=== PATIENT | female | born 1985 | race Caucasian/White ===

== ENCOUNTER 2016-11-29 15:05 | Emergency (ER) | payer OTHER ==
[2016-11-29] MEDS ORDERED: Sodium Chloride 0.9% 1,000 ML IV ONE (15:15)
[2016-11-29] MEDS ORDERED: Sodium Chloride 0.9% 2.5 ML Syringe FLUSH PRN (15:16)
[2016-11-29] MEDS ORDERED: Sodium Chloride 0.9% 10 ML Syringe FLUSH PRN (15:16)
--- NOTE | 2016-11-29 15:23 | EDM.PDOC ---
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 She's done to more subsequently that are also positive last night she started bleeding heavily with cramping and clots this last hour she is filled up maxipads. Her cramping is now subsided. She denies any dizziness or vomiting but states she is nauseous. Review of systems: As per history of present illness and below otherwise all systems reviewed and negative. Past medical history: As per history of present illness and as reviewed below otherwise noncontributory. Surgical history: As per history of present illness and as reviewed below otherwise noncontributory. Social history: No reported history of drug or alcohol abuse. Family history: As per history of present illness and as reviewed below otherwise noncontributory. Physical exam: General: Well developed, well nourished in NAD HEENT: Atraumatic, normocephalic, pupils reactive, negative for conjunctival pallor or scleral icterus, mucous membranes moist, throat clear, neck supple, nontender, trachea midline. Lungs: Clear to auscultation, breath sounds equal bilaterally, chest nontender. Heart: S1S2, regular, negative for clicks, rubs, or JVD. Abdomen: Soft, nondistended, nontender. Negative for masses or hepatosplenomegaly. Negative for costovertebral tenderness. Pelvis: Stable nontender. Genitourinary: Pelvic exam shows small clots in the os which was removed without residual bleeding. No cervical motion tenderness os is closed to fingertip the Rectal: Deferred. Extremities: Atraumatic, negative for cords or calf pain. Neurovascular unremarkable. Neuro: Awake, alert, oriented. Cranial nerves II through XII unremarkable. Cerebellum unremarkable. Motor and sensory unremarkable throughout. Exam nonfocal. Diagnostics: [] Labs are normal ultrasound shows an empty uterus normal adnexa, Rh+ Therapeutics: [] Impression: [] Spontaneous versus early Plan: [] Followup will be for repeat hCG Quant in 48-72 hours Definitive disposition and diagnosis as appropriate pending reevaluation and review of above. - Related Data Allergies Allergy/AdvReac Type Severity Reaction Status Date / Time seasonal Allergy Sneezing Uncoded 11/29/16 15:18 Home Meds: Home Meds Docosahexanoic Acid [ Dha] 200 mg PO DAILY 11/29/16 [History] ED ROS GENERAL - Review of Systems Review Of Systems: See Below (See history of present illness) ED EXAM - Physical Exam Exam: See Below (See history of present illness) Course - Vital Signs Last Recorded V/S: Last Vital Signs Temp 36.9 C 11/29/16 15:12 Pulse 79 11/29/16 15:12 Resp 19 11/29/16 15:12 BP 142/102 H 11/29/16 15:12 Pulse Ox 99 11/29/16 15:12 - Orders/Labs/Meds Orders: Active Orders 24 hr Category Date Time Status OB Transvaginal [US] Stat Exams 11/29/16 15:16 Ordered Sodium Chloride 0.9% [Saline Flush] Med 11/29/16 15:16 Active 10 ml FLUSH ASDIRECTED PRN Sodium Chloride 0.9% [Saline Flush] Med 11/29/16 15:16 Active 2.5 ml FLUSH ASDIRECTED PRN Peripheral IV Insertion Adult [OM.PC] Stat Oth 11/29/16 15:15 Ordered Medication Orders Sodium Chloride (Saline Flush) 10 ml FLUSH ASDIRECTED PRN PRN Reason: Keep Vein Open Sodium Chloride (Saline Flush) 2.5 ml FLUSH ASDIRECTED PRN PRN Reason: Keep Vein Open Labs: Laboratory Tests 11/29/16 11/29/16 11/29/16 Range/Units 15:15 15:20 15:20 WBC 8.48 (4.0-11.0) K/uL RBC 4.52 (4.30-5.90) M/uL Hgb 14.5 (12.0-16.0) g/dL Hct 42.3 (36.0-46.0) % MCV 93.6 (80.0-98.0) fL MCH 32.1 H (27.0-32.0) pg MCHC 34.3 (31.0-37.0) g/dL RDW Std Deviation 42.3 (28.0-62.0) fl RDW Coeff of Rina 12 (11.0-15.0) % Plt Count 343 (150-400) K/uL MPV 8.80 (7.40-12.00) fL Neut % (Auto) 54.0 (48.0-80.0) % Lymph % (Auto) 36.8 (16.0-40.0) % [place] % (Auto) 7.5 (0.0-15.0) % Eos % (Auto) 1.5 (0.0-7.0) % Baso % (Auto) 0.2 (0.0-1.5) % Neut # (Auto) 4.6 (1.4-5.7) K/uL Lymph # (Auto) 3.1 H (0.6-2.4) K/uL [place] # (Auto) 0.6 (0.0-0.8) K/uL Eos # (Auto) 0.1 (0.0-0.7) K/uL Baso # (Auto) 0.0 (0.0-0.1) K/uL Nucleated RBC % 0.0 /100WBC Nucleated RBCs # 0 K/uL HCG, Quant 167.3 mIU/mL Urine Color PINK Urine Appearance CLEAR Urine pH 6.5 (5.0-8.0) Ur Specific [place] <= 1.005 (1.001-1.035) Urine Protein 30 (NEGATIVE) mg/dL Urine Glucose (UA) NEGATIVE (NEGATIVE) mg/dL Urine Ketones NEGATIVE (NEGATIVE) mg/dL Urine Occult Blood LARGE H (NEGATIVE) Urine Nitrite NEGATIVE (NEGATIVE) Urine Bilirubin NEGATIVE (NEGATIVE) Urine Urobilinogen 0.2 (<2.0) EU/dL Ur Leukocyte Esterase NEGATIVE (NEGATIVE) Urine RBC 30-40 (0-2/HPF) Urine WBC 0-2 (0-5/HPF) Ur Epithelial Cells FEW (NONE-FEW) Urine Bacteria RARE (NEGATIVE) Blood Type 11/29/16 Range/Units 15:20 WBC (4.0-11.0) K/uL RBC (4.30-5.90) M/uL Hgb (12.0-16.0) g/dL Hct (36.0-46.0) % MCV (80.0-98.0) fL MCH (27.0-32.0) pg MCHC (31.0-37.0) g/dL RDW Std Deviation (28.0-62.0) fl RDW Coeff of Rina (11.0-15.0) % Plt Count (150-400) K/uL MPV (7.40-12.00) fL Neut % (Auto) (48.0-80.0) % Lymph % (Auto) (16.0-40.0) % [place] % (Auto) (0.0-15.0) % Eos % (Auto) (0.0-7.0) % Baso % (Auto) (0.0-1.5) % Neut # (Auto) (1.4-5.7) K/uL Lymph # (Auto) (0.6-2.4) K/uL [place] # (Auto) (0.0-0.8) K/uL Eos # (Auto) (0.0-0.7) K/uL Baso # (Auto) (0.0-0.1) K/uL Nucleated RBC % /100WBC Nucleated RBCs # K/uL HCG, Quant mIU/mL Urine Color Urine Appearance Urine pH (5.0-8.0) Ur Specific [place] (1.001-1.035) Urine Protein (NEGATIVE) mg/dL Urine Glucose (UA) (NEGATIVE) mg/dL Urine Ketones (NEGATIVE) mg/dL Urine Occult Blood (NEGATIVE) Urine Nitrite (NEGATIVE) Urine Bilirubin (NEGATIVE) Urine Urobilinogen (<2.0) EU/dL Ur Leukocyte Esterase (NEGATIVE) Urine RBC (0-2/HPF) Urine WBC (0-5/HPF) Ur Epithelial Cells (NONE-FEW) Urine Bacteria (NEGATIVE) Blood Type O POSITIVE Meds: Medications Generic Name Dose Route Start Last Admin Trade Name Freq PRN Reason Stop Dose Admin Sodium Chloride 10 ml 11/29/16 15:16 Saline Flush FLUSH ASDIRECTED PRN Keep Vein Open Sodium Chloride 2.5 ml 11/29/16 15:16 Saline Flush FLUSH ASDIRECTED PRN Keep Vein Open Discontinued Medications Generic Name Dose Route Start Last Admin Trade Name Freq PRN Reason Stop Dose Admin Sodium Chloride 1,000 mls @ 999 mls/hr 11/29/16 15:15 Normal Saline IV 11/29/16 16:15 .Bolus ONE Departure - Departure Time of Disposition: 16:37 Disposition: Home, Self-Care 01 Condition: good Clinical Impression: Spontaneous - Discharge Information Forms: ED Department Discharge Additional Instructions: The following information is given to patients seen in the emergency department who are being discharged to home. This information is to outline your options for follow-up care. We provide all patients seen in our emergency department with a follow-up referral. The need for follow-up, as well as the timing and circumstances, are variable depending upon the specifics of your emergency department visit. If you don't have a primary care physician on staff, we will provide you with a referral. We always advise you to contact your personal physician following an emergency department visit to inform them of the circumstance of the visit and for follow-up with them and/or the need for any referrals to a consulting specialist. The emergency department will also refer you to a specialist when appropriate. This referral assures that you have the opportunity for follow-up care with a specialist. All of these measure are taken in an effort to provide you with optimal care, which includes your follow-up. Under all circumstances we always encourage you to contact your private physician who remains a resource for coordinating your care. When calling for follow-up care, please make the office aware that this follow-up is from your recent emergency room visit. If for any reason you are refused follow-up, please contact the [facility] Emergency Department at and asked to speak to the emergency department charge nurse. Followup women's health clinic for repeat hCG Quant in 48-72 hours. [facility] Primary [facility] - Women's [facility] [address] [place] [id number] - My Orders Last 24 Hours: My Active Orders 11/29/16 15:15 Peripheral IV Insertion Adult [OM.PC] Stat 11/29/16 15:16 OB Transvaginal [US] Stat Sodium Chloride 0.9% [Saline Flush] 10 ml FLUSH ASDIRECTED PRN Sodium Chloride 0.9% [Saline Flush] 2.5 ml FLUSH ASDIRECTED PRN - Assessment/Plan Last 24 Hours: My Active Orders 11/29/16 15:15 Peripheral IV Insertion Adult [OM.PC] Stat 11/29/16 15:16 OB Transvaginal [US] Stat Sodium Chloride 0.9% [Saline Flush] 10 ml FLUSH ASDIRECTED PRN Sodium Chloride 0.9% [Saline Flush] 2.5 ml FLUSH ASDIRECTED PRN
[2016-11-29 16:58] VITALS: BP 136/72
--- NOTE | 2016-11-30 17:54 | US ---
EXAM DATE: 11/29/16 PATIENT'S AGE: 31 Patient: FIDELIA BARAHONA Facility: [place], [place] Site . Site : 1985 Study: US OB Pelvis [id number]/14/2017 4:42:05 PM Ordering Physician: Sung Shepherd Final Report: CLINICAL HISTORY: Heavy bleeding. Patient reports positive test approximately 1 week ago. TECHNIQUE: Real-time, dunaway-scale images were acquired of the pelvis using a transvaginal approach. Comparison: None available. FINDINGS: On transvaginal imaging, endometrial stripe measures 4.9 millimeters. The uterus measures 8.3 x 5.1 x 4.1 centimeters. There is a 1.9 x 1.2 x 1.0 centimeter heterogeneous mass with color signal indicating blood flow within the uterus, which appears to be located near the fundus and on the provided images appears to be located within the myometrium, anteriorly. The ovaries demonstrate normal follicular development. The left ovary measures 3.8 x 1.6 x 1.8 centimeter in size and the right ovary measures 2.3 x 1.9 x 3.9. The ovaries demonstrate normal arterial and venous blood flow. There is trace amount of fluid within the cul-de-sac. IMPRESSION: 1. No live intrauterine seen. The differential includes spontaneous , early IUP, and ectopic . I would recommend stranding in the beta HCG levels and obtain followup ultrasound exams as clinically warranted. 2. Mass within the uterus, which appears to be within the myometrium along the anterior wall, fundus. The appearance would be most consistent with a uterine fibroid. Given the positive test, and lack of additional findings if there is significant clinical concern, a followup ultrasound could be obtained as noted above. Dictated by Naldo Russo MD @ Nov 29 2016 5:22PM (Electronic Signature) Report Signed by Proxy. KALI
== END 2016-11-29 16:56 | disposition home or self-care (01) ==
LOC: MW.ED 15:05
DX: O03.9 Complete or unspecified spontaneous abortion without complication (principal); Z91.09 Other allergy status, other than to drugs and biological substances; Z79.899 Other long term (current) drug therapy
CPT/HCPCS: 36415; 76817; 81001; 84702; 85025; 86900; 86901; 96360; 99284; J7040; 99283

== ENCOUNTER 2017-10-08 14:52 | Inpatient (IN) | payer OTHER ==
[2017-10-08] MEDS ORDERED: Sodium Chloride 0.9% 2.5 ML Syringe FLUSH PRN (15:36)
[2017-10-08] MEDS ORDERED: Methylergonovine 0.2 MG/1 ML Amp IM PRN (15:36)
[2017-10-08] MEDS ORDERED: Carboprost Tromethamine 250 MCG/1 ML Amp IM PRN (15:36)
[2017-10-08] MEDS ORDERED: Lidocaine 1% 50 ML MDV INJECT PRN (15:36)
[2017-10-08] MEDS ORDERED: Tranexamic Acid 1,000 MG in Sodium Chloride 0.9% 100 ML IV PRN (15:36)
[2017-10-08] MEDS ORDERED: Nalbuphine 10 MG/1 ML Vial IVPUSH PRN (15:36)
[2017-10-08] MEDS ORDERED: Sodium Chloride 0.9% 10 ML Syringe FLUSH PRN (15:36)
[2017-10-08] MEDS ORDERED: Butorphanol 1 MG/ML SDV IVPUSH PRN (15:36)
[2017-10-08] MEDS ORDERED: Misoprostol 200 MCG Tab PO PRN (15:36)
[2017-10-08] MEDS ORDERED: Water For Irrigation,Sterile 1,000 ML Container IRR PRN (15:36)
[2017-10-08] MEDS ORDERED: Oxytocin/0.9 % Sodium Chloride 30 UNIT/500 ML BAG IV SCH (15:45)
[2017-10-08] MEDS ORDERED: Ampicillin 2 GM in Sodium Chloride 0.9% 100 ML IV ONE (16:00)
[2017-10-08] MEDS: Lactated Ringers 1,000 ML IV SCH (16:11)
[2017-10-08 16:48] LABS: CHLORIDE,CL 106 mmol/L (98-107); SODIUM,NA 136 mmol/L (136-145)
[2017-10-08] MEDS ORDERED: Misoprostol 25 MCG (1/4 of 100 MCG) Tab PO ONE (17:15)
[2017-10-08] MEDS ORDERED: hydrOXYzine Pamoate 25 MG Cap PO PRN (17:44)
[2017-10-08] MEDS: Misoprostol 25 MCG (1/4 of 100 MCG) Tab VAG PRN (17:46)
[2017-10-08] MEDS: Benzocaine/Cetylpyridinium/Menthol Lozenge MUCMEM PRN ×2 (18:15→20:51)
[2017-10-08] MEDS: Ampicillin 1 GM in Sodium Chloride 0.9% 50 ML IV SCH (20:51)
[2017-10-09] MEDS: Misoprostol 25 MCG (1/4 of 100 MCG) Tab VAG PRN (01:07)
[2017-10-09] MEDS: Benzocaine/Cetylpyridinium/Menthol Lozenge MUCMEM PRN ×3 (01:08→17:52)
[2017-10-09] MEDS: Lactated Ringers 1,000 ML IV SCH ×2 (01:10→05:23)
--- NOTE | 2017-10-09 01:19 | PCM.PREANE ---
Preanesthetic Assessment - Anesthesia/Transfusion/Family Hx Anesthesia History: Prior Anesthesia Without Reaction Family History of Anesthesia Reaction: No Transfusion History: No Prior Transfusion(s) - Review of Systems General: No Symptoms Pulmonary: No Symptoms Cardiovascular: No Symptoms Gastrointestinal: No Symptoms Neurological: No Symptoms Other: Reports: None (Denies any personal or family hx of bleeding or clotting problems) - Physical Assessment Height: 1.63 m Weight: 87.997 kg ASA Class: 2 Mental Status: Alert & Oriented x3 Airway Class: Mallampati = 1 Dentition: Reports: Normal Dentition ROM/Head Extension: Full - Lab Values: Laboratory Last Values WBC 8.38 K/uL (4.0-11.0) 10/08/17 16:03 RBC 3.97 M/uL (4.30-5.90) L 10/08/17 16:03 Hgb 13.2 g/dL (12.0-16.0) 10/08/17 16:03 Hct 36.9 % (36.0-46.0) 10/08/17 16:03 MCV 92.9 fL (80.0-98.0) 10/08/17 16:03 MCH 33.2 pg (27.0-32.0) H 10/08/17 16:03 MCHC 35.8 g/dL (31.0-37.0) 10/08/17 16:03 RDW Std Deviation 42.7 fl (28.0-62.0) 10/08/17 16:03 RDW Coeff of Rina 13 % (11.0-15.0) 10/08/17 16:03 Plt Count 211 K/uL (150-400) 10/08/17 16:03 MPV 9.90 fL (7.40-12.00) 10/08/17 16:03 Nucleated RBC % 0.0 /100WBC 10/08/17 16:03 Nucleated RBCs # 0 K/uL 10/08/17 16:03 Sodium 136 mmol/L (136-145) 10/08/17 16:03 Potassium 3.7 mmol/L (3.5-5.1) 10/08/17 16:03 Chloride 106 mmol/L (98-107) 10/08/17 16:03 Carbon Dioxide 17.8 mmol/L (21.0-32.0) L 10/08/17 16:03 BUN 10 mg/dL (7.0-18.0) 10/08/17 16:03 Creatinine 0.5 mg/dL (0.6-1.0) L 10/08/17 16:03 Est Cr Clr Drug Dosing 139.49 mL/min 10/08/17 16:03 Estimated GFR (MDRD) > 60.0 ml/min 10/08/17 16:03 Glucose 134 mg/dL (74-106) H 10/08/17 16:03 Uric Acid 3.6 mg/dL (2.6-7.2) 10/08/17 16:03 Calcium 8.7 mg/dL (8.5-10.1) 10/08/17 16:03 Total Bilirubin 0.1 mg/dL (0.2-1.0) L 10/08/17 16:03 AST 34 IU/L (15-37) 10/08/17 16:03 ALT 43 IU/L (14-63) 10/08/17 16:03 Alkaline Phosphatase 191 U/L (46-116) H 10/08/17 16:03 Total Protein 6.2 g/dL (6.4-8.2) L 10/08/17 16:03 Albumin 2.4 g/dL (3.4-5.0) L 10/08/17 16:03 Globulin 3.8 g/dL (2.0-3.5) H 10/08/17 16:03 Albumin/Globulin Ratio 0.6 (1.3-2.8) L 10/08/17 16:03 Urine Color YELLOW 10/08/17 17:09 Urine Appearance CLEAR 10/08/17 17:09 Urine pH 6.0 (5.0-8.0) 10/08/17 17:09 Ur Specific [place] 1.010 (1.001-1.035) 10/08/17 17:09 Urine Protein NEGATIVE mg/dL (NEGATIVE) 10/08/17 17:09 Urine Glucose (UA) NEGATIVE mg/dL (NEGATIVE) 10/08/17 17:09 Urine Ketones NEGATIVE mg/dL (NEGATIVE) 10/08/17 17:09 Urine Occult Blood NEGATIVE (NEGATIVE) 10/08/17 17:09 Urine Nitrite NEGATIVE (NEGATIVE) 10/08/17 17:09 Urine Bilirubin NEGATIVE (NEGATIVE) 10/08/17 17:09 Urine Urobilinogen 0.2 EU/dL (<2.0) 10/08/17 17:09 Ur Leukocyte Esterase NEGATIVE (NEGATIVE) 10/08/17 17:09 Urine RBC 0-1 (0-2/HPF) 10/08/17 17:09 Urine WBC 0-1 (0-5/HPF) 10/08/17 17:09 Ur Epithelial Cells OCCASIONAL (NONE-FEW) 10/08/17 17:09 Urine Bacteria RARE (NEGATIVE) 10/08/17 17:09 Blood Type O POSITIVE 10/08/17 16:03 Antibody Screen NEGATIVE 10/08/17 16:03 - Allergies Allergies/Adverse Reactions: Allergies Allergy/AdvReac Type Severity Reaction Status Date / Time seasonal Allergy Sneezing Uncoded 11/29/16 15:18 - Acknowledgements Anesthesia Type Planned: Epidural Pt an Appropriate Candidate for the Planned Anesthesia: Yes Alternatives and Risks of Anesthesia Discussed w Pt/Guardian: Yes Pt/Guardian Understands and Agrees with Anesthesia Plan: Yes PreAnesthesia Questionnaire HEENT History: Reports: None Cardiovascular History: Reports: Hypertension Respiratory History: Reports: Asthma 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 FEEDER History: Reports: , Spontaneous Psychiatric History: Reports: Anxiety, Depression, Suicide Attempt - Infectious Disease History Infectious Disease History: Reports: Chicken Pox, Measles, Mumps - Past Surgical History HEENT Surgical History: Reports: Oral Surgery ([place] teeth) Cardiovascular Surgical History: Reports: None - SUBSTANCE USE Smoking Status *Q: Former Smoker Tobacco Use Within Last Twelve Months: Cigarettes Recreational Drug Use History: Yes Recreational Drug Type: Reports: Ecstasy, Marijuana/Hashish Recreational Drug Last Use: 2012 - HOME MEDS Home Medications: Home Meds Docosahexanoic Acid [ Dha] 200 mg PO DAILY 11/29/16 [History] Acetaminophen [Tylenol Extra Strength] 1,000 mg PO PRN 10/08/17 [History] Calcium Carbonate [Tums] 10/08/17 [History] Psyllium with Sucrose [Metamucil] 10/08/17 [History] - CURRENT (IN HOUSE) MEDS Current Meds: Current Medications Benzocaine/Menthol (Cepacol Sore Throat) 1 lozenge MUCMEM Q2H PRN PRN Reason: Cough Last Admin: 10/09/17 01:08 Dose: 1 lozenge Butorphanol Tartrate (Stadol) 1 mg IVPUSH Q1H PRN PRN Reason: Pain Carboprost Tromethamine (Hemabate Ds) 250 mcg IM ASDIRECTED PRN PRN Reason: Post Hemorrhage Hydroxyzine Pamoate (Vistaril) 50 mg PO BEDTIME PRN PRN Reason: Sleep Last Admin: 10/08/17 20:51 Dose: 50 mg Ampicillin Sodium 1 gm/ Sodium (Chloride) 50 mls @ 100 mls/hr IV Q4H [facility] Last Admin: 10/09/17 00:00 Dose: 100 mls/hr Lactated Ringer's (Ringers, Lactated) 1,000 mls @ 150 mls/hr IV ASDIRECTED [facility] Last Admin: 10/09/17 01:10 Dose: 150 mls/hr Oxytocin/Sodium Chloride (Oxytocin 30 Unit/500 Ml-Ns) 30 unit in 500 mls @ 999 mls/hr IV TITRATE [facility] Tranexamic Acid 1,000 mg/ (Sodium Chloride) 110 mls @ 660 mls/hr IV ONETIME PRN PRN Reason: Bleeding Lidocaine HCl (Xylocaine 1%) 50 ml INJECT .ONCE PRN PRN Reason: Laceration repair Methylergonovine Maleate (Methergine) 0.2 mg IM ASDIRECTED PRN PRN Reason: Post Hemorrhage Misoprostol (Cytotec) 200 mcg PO .ONCE PRN PRN Reason: Post Hemorrhage Misoprostol (Cytotec) 25 mcg VAG Q6H PRN PRN Reason: Cervical Ripening Last Admin: 10/09/17 01:07 Dose: 25 mcg Nalbuphine HCl (Nubain) 10 mg IVPUSH Q1H PRN PRN Reason: Pain (severe 7-10) Sodium Chloride (Saline Flush) 10 ml FLUSH ASDIRECTED PRN PRN Reason: Keep Vein Open Sodium Chloride (Saline Flush) 2.5 ml FLUSH ASDIRECTED PRN PRN Reason: Keep Vein Open Sterile Water (Sterile Water For Irrigation) 1,000 ml IRR ASDIRECTED PRN PRN Reason: delivery Discontinued Medications Ampicillin Sodium 2 gm/ Sodium (Chloride) 100 mls @ 200 mls/hr IV ONETIME ONE Stop: 10/08/17 16:29 Last Admin: 10/08/17 16:11 Dose: 200 mls/hr Fentanyl/Bupivacaine HCl ([id number]-[id number]-Cv 2 Mcg/Ml-0.125%) Confirm Administered Dose 100 mls @ as directed EP .STK-MED ONE Stop: 10/09/17 00:40 Misoprostol (Cytotec) 25 mcg PO ONETIME ONE Stop: 10/08/17 17:16 Last Admin: 10/08/17 17:45 Dose: 25 mcg
[2017-10-09] MEDS: Ampicillin 1 GM in Sodium Chloride 0.9% 50 ML IV SCH ×5 (04:14→11:59)
--- NOTE | 2017-10-09 12:25 | PCM.SN ---
- Free Text/Narrative Note: Patient encountered for replacement of completed epidural medication; pump reset and patient allowed to bolus dose and report relief while I was in attendance. Planned delivery pending additional pitocin and some progress since she is assessed at 10cm already. Continuous pump local anesthetic with narcotic restarted. bedside [id number].
[2017-10-09] MEDS ORDERED: Ibuprofen 800 MG Tab PO PRN (13:32)
[2017-10-09] MEDS ORDERED: Acetaminophen 500 MG Tab PO PRN (13:32)
[2017-10-09] MEDS ORDERED: Lanolin 100% Cream 7 GM Tube TOP PRN (13:32)
[2017-10-09] MEDS ORDERED: Methylergonovine 0.2 MG/1 ML Amp IM PRN (13:32)
[2017-10-09] MEDS ORDERED: Witch Hazel Medicated Pads 40/Jar TOP PRN (13:32)
[2017-10-09] MEDS ORDERED: Ibuprofen 400 MG Tab PO PRN (13:32)
[2017-10-09] MEDS ORDERED: Bisacodyl 10 MG Supp RECTAL PRN (13:32)
[2017-10-09] MEDS ORDERED: oxyCODONE 5 MG Tab PO PRN (13:32)
[2017-10-09] MEDS ORDERED: Benzocaine/Menthol 20%-0.5% Spray 78 GM Cannister TOP PRN (13:32)
[2017-10-09] MEDS ORDERED: Docusate Sodium 100 MG Cap PO PRN (13:32)
--- NOTE | 2017-10-09 13:45 | PCM.DEL ---
L & D Note - General Info Date of Service: 10/09/17 Mother's Due Date: 10/30/17 - Delivery Note Labor: Spontaneous Delivery Outcome: Livebirth Infant Delivery Method: Spontaneous Vaginal Delivery-Single Presentation: Left Occiput Anterior (EMILY) Nuchal Cord: None Prep: Other (chlorhexidine) Anesthesia Type: Epidural Amniotic Fluid Description: Clear Episiotomy Type: None Laceration: Labial (left) Suture type: Vicryl Suture size: 3-0 Placenta: Intact, Spontaneous Cord: 3 Vessels Estimated Blood Loss: 300 Resuscitation Needed: No : Suctioned Score 1 min: 8 Score 5 min: 9 (weight 3340 grams) - Patient Data Weight - Most Recent: 87.997 kg Lab Results Last 24 Hours: Laboratory Results - last 24 hr 10/08/17 10/08/17 10/08/17 Range/Units 16:03 16:03 16:03 WBC 8.38 (4.0-11.0) K/uL RBC 3.97 L (4.30-5.90) M/uL Hgb 13.2 (12.0-16.0) g/dL Hct 36.9 (36.0-46.0) % MCV 92.9 (80.0-98.0) fL MCH 33.2 H (27.0-32.0) pg MCHC 35.8 (31.0-37.0) g/dL RDW Std Deviation 42.7 (28.0-62.0) fl RDW Coeff of Rina 13 (11.0-15.0) % Plt Count 211 (150-400) K/uL MPV 9.90 (7.40-12.00) fL Nucleated RBC % 0.0 /100WBC Nucleated RBCs # 0 K/uL Sodium 136 (136-145) mmol/L Potassium 3.7 (3.5-5.1) mmol/L Chloride 106 (98-107) mmol/L Carbon Dioxide 17.8 L (21.0-32.0) mmol/L BUN 10 (7.0-18.0) mg/dL Creatinine 0.5 L (0.6-1.0) mg/dL Est Cr Clr Drug Dosing 139.49 mL/min Estimated GFR (MDRD) > 60.0 ml/min Glucose 134 H (74-106) mg/dL Uric Acid 3.6 (2.6-7.2) mg/dL Calcium 8.7 (8.5-10.1) mg/dL Total Bilirubin 0.1 L (0.2-1.0) mg/dL AST 34 (15-37) IU/L ALT 43 (14-63) IU/L Alkaline Phosphatase 191 H (46-116) U/L Total Protein 6.2 L (6.4-8.2) g/dL Albumin 2.4 L (3.4-5.0) g/dL Globulin 3.8 H (2.0-3.5) g/dL Albumin/Globulin Ratio 0.6 L (1.3-2.8) Urine Color Urine Appearance Urine pH (5.0-8.0) Ur Specific [place] (1.001-1.035) Urine Protein (NEGATIVE) mg/dL Urine Glucose (UA) (NEGATIVE) mg/dL Urine Ketones (NEGATIVE) mg/dL Urine Occult Blood (NEGATIVE) Urine Nitrite (NEGATIVE) Urine Bilirubin (NEGATIVE) Urine Urobilinogen (<2.0) EU/dL Ur Leukocyte Esterase (NEGATIVE) Urine RBC (0-2/HPF) Urine WBC (0-5/HPF) Ur Epithelial Cells (NONE-FEW) Urine Bacteria (NEGATIVE) Blood Type O POSITIVE Antibody Screen NEGATIVE 10/08/17 Range/Units 17:09 WBC (4.0-11.0) K/uL RBC (4.30-5.90) M/uL Hgb (12.0-16.0) g/dL Hct (36.0-46.0) % MCV (80.0-98.0) fL MCH (27.0-32.0) pg MCHC (31.0-37.0) g/dL RDW Std Deviation (28.0-62.0) fl RDW Coeff of Rina (11.0-15.0) % Plt Count (150-400) K/uL MPV (7.40-12.00) fL Nucleated RBC % /100WBC Nucleated RBCs # K/uL Sodium (136-145) mmol/L Potassium (3.5-5.1) mmol/L Chloride (98-107) mmol/L Carbon Dioxide (21.0-32.0) mmol/L BUN (7.0-18.0) mg/dL Creatinine (0.6-1.0) mg/dL Est Cr Clr Drug Dosing mL/min Estimated GFR (MDRD) ml/min Glucose (74-106) mg/dL Uric Acid (2.6-7.2) mg/dL Calcium (8.5-10.1) mg/dL Total Bilirubin (0.2-1.0) mg/dL AST (15-37) IU/L ALT (14-63) IU/L Alkaline Phosphatase (46-116) U/L Total Protein (6.4-8.2) g/dL Albumin (3.4-5.0) g/dL Globulin (2.0-3.5) g/dL Albumin/Globulin Ratio (1.3-2.8) Urine Color YELLOW Urine Appearance CLEAR Urine pH 6.0 (5.0-8.0) Ur Specific [place] 1.010 (1.001-1.035) Urine Protein NEGATIVE (NEGATIVE) mg/dL Urine Glucose (UA) NEGATIVE (NEGATIVE) mg/dL Urine Ketones NEGATIVE (NEGATIVE) mg/dL Urine Occult Blood NEGATIVE (NEGATIVE) Urine Nitrite NEGATIVE (NEGATIVE) Urine Bilirubin NEGATIVE (NEGATIVE) Urine Urobilinogen 0.2 (<2.0) EU/dL Ur Leukocyte Esterase NEGATIVE (NEGATIVE) Urine RBC 0-1 (0-2/HPF) Urine WBC 0-1 (0-5/HPF) Ur Epithelial Cells OCCASIONAL (NONE-FEW) Urine Bacteria RARE (NEGATIVE) Blood Type Antibody Screen Jr Results Last 24 Hours: Microbiology 10/08/17 17:00 Influenza Type A Antigen Screen - Final Nasopharyngeal Swab NEGATIVE INFLUENZA A VIRUS AG Influenza Type B Antigen Screen - Final NEGATIVE INFLUENZA B VIRUS AG 10/08/17 17:00 Group A Streptococcus Rapid Screen - Final Throat NEGATIVE STREP A SCREEN Med Orders - Current: Current Medications Acetaminophen (Tylenol Extra Strength) 500 mg PO Q4H PRN PRN Reason: Pain Acetaminophen (Tylenol Extra Strength) 1,000 mg PO Q4H PRN PRN Reason: Pain Benzocaine/Menthol (Dermoplast Pain Relief 20%-0.5% [place]) 78 gm TOP ASDIRECTED PRN PRN Reason: Perineal Comfort Measure Bisacodyl (Dulcolax) 10 mg RECTAL .ONCE PRN PRN Reason: Constipation Docusate Sodium (Colace) 100 mg PO BID PRN PRN Reason: Constipation Emollient Ointment (Lansinoh Hpa) 0 gm TOP ASDIRECTED PRN PRN Reason: Sore Nipples Ibuprofen (Motrin) 400 mg PO Q4H PRN PRN Reason: Pain Ibuprofen (Motrin) 800 mg PO Q6H PRN PRN Reason: Pain Methylergonovine Maleate (Methergine) 0.2 mg IM .ONCE PRN PRN Reason: Excessive Vaginal Bleeding Oxycodone HCl (Oxycodone) 5 mg PO Q2H PRN PRN Reason: Pain Witch Antonia (Tucks) 1 pad TOP ASDIRECTED PRN PRN Reason: comfort care Discontinued Medications Benzocaine/Menthol (Cepacol Sore Throat) 1 lozenge MUCMEM Q2H PRN PRN Reason: Cough Last Admin: 10/09/17 04:14 Dose: 1 lozenge Butorphanol Tartrate (Stadol) 1 mg IVPUSH Q1H PRN PRN Reason: Pain Carboprost Tromethamine (Hemabate Ds) 250 mcg IM ASDIRECTED PRN PRN Reason: Post Hemorrhage Hydroxyzine Pamoate (Vistaril) 50 mg PO BEDTIME PRN PRN Reason: Sleep Last Admin: 10/08/17 20:51 Dose: 50 mg Ampicillin Sodium 2 gm/ Sodium (Chloride) 100 mls @ 200 mls/hr IV ONETIME ONE Stop: 10/08/17 16:29 Last Admin: 10/08/17 16:11 Dose: 200 mls/hr Ampicillin Sodium 1 gm/ Sodium (Chloride) 50 mls @ 100 mls/hr IV Q4H [facility] Last Admin: 10/09/17 11:59 Dose: 100 mls/hr Lactated Ringer's (Ringers, Lactated) 1,000 mls @ 150 mls/hr IV ASDIRECTED [facility] Last Admin: 10/09/17 05:23 Dose: 150 mls/hr Oxytocin/Sodium Chloride (Oxytocin 30 Unit/500 Ml-Ns) 30 unit in 500 mls @ 999 mls/hr IV TITRATE [facility] Last Infusion: 10/09/17 05:47 Dose: 10 mls/hr Tranexamic Acid 1,000 mg/ (Sodium Chloride) 110 mls @ 660 mls/hr IV ONETIME PRN PRN Reason: Bleeding Fentanyl/Bupivacaine HCl (Pzpaetgu-Igfuq-Dn 2 Mcg/Ml-0.125%) Confirm Administered Dose 100 mls @ as directed EP .STK-MED ONE Stop: 10/09/17 00:40 Oxytocin 20 unit/ Sodium (Chloride) 1,002 mls @ 6.01 mls/hr IV TITRATE JUANPABLO; 2 MUNITS/MIN PRN Reason: Protocol Fentanyl/Bupivacaine HCl (Mllvthiz-Vfmuf-Iq 2 Mcg/Ml-0.125%) Confirm Administered Dose 100 mls @ as directed EP .STK-MED ONE Stop: 10/09/17 10:02 Lidocaine HCl (Xylocaine 1%) 50 ml INJECT .ONCE PRN PRN Reason: Laceration repair Methylergonovine Maleate (Methergine) 0.2 mg IM ASDIRECTED PRN PRN Reason: Post Hemorrhage Misoprostol (Cytotec) 200 mcg PO .ONCE PRN PRN Reason: Post Hemorrhage Misoprostol (Cytotec) 25 mcg PO ONETIME ONE Stop: 10/08/17 17:16 Last Admin: 10/08/17 17:45 Dose: 25 mcg Misoprostol (Cytotec) 25 mcg VAG Q6H PRN PRN Reason: Cervical Ripening Last Admin: 10/09/17 01:07 Dose: 25 mcg Nalbuphine HCl (Nubain) 10 mg IVPUSH Q1H PRN PRN Reason: Pain (severe 7-10) Sodium Chloride (Saline Flush) 10 ml FLUSH ASDIRECTED PRN PRN Reason: Keep Vein Open Sodium Chloride (Saline Flush) 2.5 ml FLUSH ASDIRECTED PRN PRN Reason: Keep Vein Open Sterile Water (Sterile Water For Irrigation) 1,000 ml IRR ASDIRECTED PRN PRN Reason: delivery - Problem List & Annotations (1) PROM with onset of labor more than 24 hours following rupture SNOMED Code(s): 727716318 Code(s): O42.10 - LILO ROM, ONSET LABOR > 24 HR FOL RUPT, UNSP WEEKS OF GEST Status: Acute Current Visit: Yes (2) Vaginal delivery SNOMED Code(s): 696300567 Code(s): O80 - ENCOUNTER FOR FULL-TERM UNCOMPLICATED DELIVERY Status: Acute Current Visit: Yes - Problem List Review Problem List Initiated/Reviewed/Updated: Yes - My Orders Last 24 Hours: My Active Orders 10/09/17 13:32 Patient Status [ADT] Routine May Shower [RC] ASDIRECTED Up ad Raquel [RC] ASDIRECTED Vital Signs [RC] PER UNIT ROUTINE Acetaminophen [Tylenol Extra Strength] 1,000 mg PO Q4H PRN Acetaminophen [Tylenol Extra Strength] 500 mg PO Q4H PRN Benzocaine/Menthol [Dermoplast Pain Relief 20%-0.5% [place]] 78 gm TOP ASDIRECTED PRN Bisacodyl [Dulcolax] 10 mg RECTAL .ONCE PRN Docusate Sodium [Colace] 100 mg PO BID PRN Ibuprofen [Motrin] 400 mg PO Q4H PRN Ibuprofen [Motrin] 800 mg PO Q6H PRN Lanolin [Lansinoh HPA] See Dose Instructions TOP ASDIRECTED PRN Methylergonovine [Methergine] 0.2 mg IM .ONCE PRN Witch Antonia [Tucks] 1 pad TOP ASDIRECTED PRN oxyCODONE 5 mg PO Q2H PRN Assess Lochia [WOMSER] Per Unit Routine Assess Uterine Involution [WOMSER] Per Unit Routine Peripheral IV Discontinue [OM.PC] Routine Resuscitation Status Routine 10/09/17 13:33 Perineal Care [OM.PC] Per Unit Routine 10/09/17 Dinner Regular Diet [DIET] 10/10/17 05:11 HEMOGLOBIN/HEMATOCRIT,HH [HEME] Timed
--- NOTE | 2017-10-09 14:37 | OR ---
SURGEON: Snow Garvin M.D. DATE OF PROCEDURE: 10/09/2017 PREOPERATIVE DIAGNOSIS: Premature rupture of membranes with induction of labor. POSTOPERATIVE DIAGNOSIS: Premature rupture of membranes with induction of labor. PROCEDURE: 1. Cytotec and Pitocin induction of labor, term spontaneous vaginal delivery. 2. Repair of right labial laceration. ANESTHESIA: Epidural. ESTIMATED BLOOD LOSS: Less than 300 mL. FINDINGS: Live born male, score 8 and 9, weighing 3340 g. Placenta spontaneous, Schultze intact, with 3 vessels. Left labial laceration repaired. No perineal, periurethral, vaginal sidewall, rectal, or perineal lacerations. BRIEF HISTORY: This is a 32-year-old female. She is G2, P0-0-1-0. She presents at 36 and 6/7th weeks' gestation with spontaneous rupture of membranes. Clear fluid. She had an unfavorable cervix. She received Cytotec. After the 2nd dose of Cytotec, she was 3-4 cm dilated. She was initially started on ampicillin for group B strep prophylaxis and this was carried out throughout the labor and she was started on Pitocin. At this point, she received an epidural for pain control. She continued to progress appropriately to complete. The head was still at a high station. Therefore she was allowed to have passive descent. DESCRIPTION OF PROCEDURE: With the patient in dorsal lithotomy position, under adequate epidural analgesia, the patient pushed over 1 hour time period to a 5+ station, at which time the head was delivered spontaneously and atraumatically over the perineum with support with subsequent delivery of the 's shoulders and body without any difficulty. The infant was bulb suctioned by nose and mouth. The cord was doubly clamped and cut. It was noted that the cord was quite short. There was no nuchal cord. The infant was handed to the mother in the presence of nurse attending delivery. The infant was a liveborn male, score 8 and 9, weighing 3340 g. Cord blood was collected for cord ABGs as well as routine cord blood sampling. Pitocin was initiated after delivery of the infant to assist with delivery of the placenta which was delivered spontaneously, Schultze intact, with 3 vessels. Upon inspection of the pelvis and perineum, there were no periurethral, vaginal sidewall, cervical, or rectal lacerations. There was a labial laceration on the left side that was repaired using interrupted suture of 3-0 Vicryl. Final sponge, needle, and instrument counts were correct. There were no known complications. Mother and baby are in LDRP in good condition. ALPESH CHAUDHRY /[id number]
--- NOTE | 2017-10-09 14:52 | PCM48HPAN ---
Post Anesthesia Note - EVALUATION WITHIN 48HRS OF ANESTHETIC Vital Signs in Normal Range: Yes Patient Participated in Evaluation: Yes Respiratory Function Stable: Yes Airway Patent: Yes Cardiovascular Function Stable: Yes Hydration Status Stable: Yes Pain Control Satisfactory: Yes Nausea and Vomiting Control Satisfactory: Yes Mental Status Recovered: Yes
[2017-10-09] MEDS: Acetaminophen 500 MG Tab PO PRN (16:20)
[2017-10-10] MEDS: Benzocaine/Cetylpyridinium/Menthol Lozenge MUCMEM PRN ×3 (02:41→17:07)
[2017-10-10] MEDS: Acetaminophen 500 MG Tab PO PRN ×2 (02:41→18:08)
--- NOTE | 2017-10-10 09:26 | PCM.PNPP ---
- General Info Date of Service: 10/10/17 Functional Status: Reports: Pain Controlled, Tolerating Diet, Ambulating, Urinating, Other (working on , some difficulty latching.) - Review of Systems General: Reports: No Symptoms HEENT: Reports: No Symptoms Pulmonary: Reports: No Symptoms Cardiovascular: Reports: No Symptoms Gastrointestinal: Reports: No Symptoms Genitourinary: Reports: No Symptoms Musculoskeletal: Reports: No Symptoms Skin: Reports: No Symptoms Neurological: Reports: No Symptoms Psychiatric: Reports: No Symptoms - Patient Data Vital Signs - Most Recent: Last Vital Signs Temp 36.6 C 10/10/17 08:11 Pulse 84 10/10/17 08:11 Resp 16 10/10/17 08:11 BP 126/80 10/10/17 08:11 Pulse Ox 96 10/10/17 08:11 Weight - Most Recent: 87.997 kg Lab Results - Last 24 Hours: Laboratory Results - last 24 hr 10/09/17 10/10/17 Range/Units 12:59 06:20 Hgb 12.1 (12.0-16.0) g/dL Hct 34.9 L (36.0-46.0) % Cord ABG pH 7.007 L (7.18-7.38) Cord ABG Base Excess -15 L (-10--2) Cord VBG pH 7.157 L (7.25-7.45) Cord VBG Base Excess -12 L (-10--2) Micro Results - Last 24 Hours: Microbiology 10/08/17 17:00 Quick Strep Confirmation Culture - Final Throat NO GROUP A STREP ISOLATED Group A Streptococcus Rapid Screen - Final NEGATIVE STREP A SCREEN Med Orders - Current: Current Medications Acetaminophen (Tylenol Extra Strength) 500 mg PO Q4H PRN PRN Reason: Pain Acetaminophen (Tylenol Extra Strength) 1,000 mg PO Q4H PRN PRN Reason: Pain Last Admin: 10/10/17 02:41 Dose: 1,000 mg Benzocaine/Menthol (Dermoplast Pain Relief 20%-0.5% [place]) 78 gm TOP ASDIRECTED PRN PRN Reason: Perineal Comfort Measure Last Admin: 10/09/17 17:34 Dose: 1 applic Bisacodyl (Dulcolax) 10 mg RECTAL .ONCE PRN PRN Reason: Constipation Docusate Sodium (Colace) 100 mg PO BID PRN PRN Reason: Constipation Last Admin: 10/10/17 07:56 Dose: 100 mg Emollient Ointment (Lansinoh Hpa) 0 gm TOP ASDIRECTED PRN PRN Reason: Sore Nipples Last Admin: 10/09/17 17:35 Dose: 1 applic Ibuprofen (Motrin) 400 mg PO Q4H PRN PRN Reason: Pain Ibuprofen (Motrin) 800 mg PO Q6H PRN PRN Reason: Pain Methylergonovine Maleate (Methergine) 0.2 mg IM .ONCE PRN PRN Reason: Excessive Vaginal Bleeding Oxycodone HCl (Oxycodone) 5 mg PO Q2H PRN PRN Reason: Pain Witch Antonia (Tucks) 1 pad TOP ASDIRECTED PRN PRN Reason: comfort care Last Admin: 10/09/17 17:35 Dose: 1 applic Discontinued Medications Benzocaine/Menthol (Cepacol Sore Throat) 1 lozenge MUCMEM Q2H PRN PRN Reason: Cough Last Admin: 10/10/17 07:57 Dose: 1 lozenge Butorphanol Tartrate (Stadol) 1 mg IVPUSH Q1H PRN PRN Reason: Pain Carboprost Tromethamine (Hemabate Ds) 250 mcg IM ASDIRECTED PRN PRN Reason: Post Hemorrhage Hydroxyzine Pamoate (Vistaril) 50 mg PO BEDTIME PRN PRN Reason: Sleep Last Admin: 10/08/17 20:51 Dose: 50 mg Ampicillin Sodium 2 gm/ Sodium (Chloride) 100 mls @ 200 mls/hr IV ONETIME ONE Stop: 10/08/17 16:29 Last Admin: 10/08/17 16:11 Dose: 200 mls/hr Ampicillin Sodium 1 gm/ Sodium (Chloride) 50 mls @ 100 mls/hr IV Q4H REPLACED BY [facility] Last Admin: 10/09/17 11:59 Dose: 100 mls/hr Lactated Ringer's (Ringers, Lactated) 1,000 mls @ 150 mls/hr IV ASDIRECTED REPLACED BY [facility] Last Admin: 10/09/17 05:23 Dose: 150 mls/hr Oxytocin/Sodium Chloride (Oxytocin 30 Unit/500 Ml-Ns) 30 unit in 500 mls @ 999 mls/hr IV TITRATE JUANPABLO Last Infusion: 10/09/17 05:47 Dose: 10 mls/hr Tranexamic Acid 1,000 mg/ (Sodium Chloride) 110 mls @ 660 mls/hr IV ONETIME PRN PRN Reason: Bleeding Fentanyl/Bupivacaine HCl (Ppthyiar-Snszu-Pu 2 Mcg/Ml-0.125%) Confirm Administered Dose 100 mls @ as directed EP .STK-MED ONE Stop: 10/09/17 00:40 Oxytocin 20 unit/ Sodium (Chloride) 1,002 mls @ 6.01 mls/hr IV TITRATE JUANPABLO; 2 MUNITS/MIN PRN Reason: Protocol Fentanyl/Bupivacaine HCl (Rvgtoafu-Seblx-Lu 2 Mcg/Ml-0.125%) Confirm Administered Dose 100 mls @ as directed EP .STK-MED ONE Stop: 10/09/17 10:02 Lidocaine HCl (Xylocaine 1%) 50 ml INJECT .ONCE PRN PRN Reason: Laceration repair Methylergonovine Maleate (Methergine) 0.2 mg IM ASDIRECTED PRN PRN Reason: Post Hemorrhage Misoprostol (Cytotec) 200 mcg PO .ONCE PRN PRN Reason: Post Hemorrhage Misoprostol (Cytotec) 25 mcg PO ONETIME ONE Stop: 10/08/17 17:16 Last Admin: 10/08/17 17:45 Dose: 25 mcg Misoprostol (Cytotec) 25 mcg VAG Q6H PRN PRN Reason: Cervical Ripening Last Admin: 10/09/17 01:07 Dose: 25 mcg Nalbuphine HCl (Nubain) 10 mg IVPUSH Q1H PRN PRN Reason: Pain (severe 7-10) Sodium Chloride (Saline Flush) 10 ml FLUSH ASDIRECTED PRN PRN Reason: Keep Vein Open Sodium Chloride (Saline Flush) 2.5 ml FLUSH ASDIRECTED PRN PRN Reason: Keep Vein Open Sterile Water (Sterile Water For Irrigation) 1,000 ml IRR ASDIRECTED PRN PRN Reason: delivery Last Admin: 10/09/17 16:21 Dose: 1,000 ml - Infant Interaction Disposition, : in Room with Family Feeding: Attempted ; Nursed Fair/Poor Support Person: - Recovery Exam Fundal Tone: Firm Fundal Level: At Umbilicus Fundal Placement: Midline Lochia Amount: Scant Lochia Color: Rubra/Red Perineum Description: Edematous Episiotomy/Laceration: Approximated Bladder Status: Voiding Urinary Elimination: Voided - Exam General: Alert, Oriented HEENT: Pupils Equal Lungs: Normal Respiratory Effort GI/Abdominal Exam: Soft, Non-Tender, No Organomegaly, No Distention, Pelvis Stable Extremities: Normal Inspection, Normal Range of Motion, Non-Tender, No Pedal Edema Skin: Warm, Dry, Intact Neurological: No New Focal Deficit Psy/Mental Status: Alert, Normal Affect, Normal Mood - Problem List & Annotations (1) PROM with onset of labor more than 24 hours following rupture SNOMED Code(s): 208190332 Code(s): O42.10 - LILO ROM, ONSET LABOR > 24 HR FOL RUPT, UNSP WEEKS OF GEST Status: Acute Current Visit: Yes (2) Vaginal delivery SNOMED Code(s): 489790793 Code(s): O80 - ENCOUNTER FOR FULL-TERM UNCOMPLICATED DELIVERY Status: Acute Current Visit: Yes - Problem List Review Problem List Initiated/Reviewed/Updated: Yes - My Orders Last 24 Hours: My Active Orders 10/09/17 13:32 Patient Status [ADT] Routine May Shower [RC] ASDIRECTED Up ad Raquel [RC] ASDIRECTED Vital Signs [RC] PER UNIT ROUTINE Acetaminophen [Tylenol Extra Strength] 1,000 mg PO Q4H PRN Acetaminophen [Tylenol Extra Strength] 500 mg PO Q4H PRN Benzocaine/Menthol [Dermoplast Pain Relief 20%-0.5% [place]] 78 gm TOP ASDIRECTED PRN Bisacodyl [Dulcolax] 10 mg RECTAL .ONCE PRN Docusate Sodium [Colace] 100 mg PO BID PRN Ibuprofen [Motrin] 400 mg PO Q4H PRN Ibuprofen [Motrin] 800 mg PO Q6H PRN Lanolin [Lansinoh HPA] See Dose Instructions TOP ASDIRECTED PRN Methylergonovine [Methergine] 0.2 mg IM .ONCE PRN Witch Antonia [Tucks] 1 pad TOP ASDIRECTED PRN oxyCODONE 5 mg PO Q2H PRN Assess Lochia [WOMSER] Per Unit Routine Assess Uterine Involution [WOMSER] Per Unit Routine Peripheral IV Discontinue [OM.PC] Routine Resuscitation Status Routine 10/09/17 13:33 Perineal Care [OM.PC] Per Unit Routine 10/09/17 Dinner Regular Diet [DIET] - Assessment Assessment:: PPD#1 after following induction for PPROM. Delivery at 37 weeks. She is very fatigued, and struggling with and latching . Would like to stay until tomorrow. - Plan Plan:: Continue care, information for labor relations consultant. Anticipate home tomorrow.
[2017-10-11 08:54] VITALS: BP 136/87
--- NOTE | 2017-10-11 12:05 | PCM.PNPP ---
- General Info Date of Service: 10/11/17 Functional Status: Reports: Pain Controlled, Tolerating Diet, Ambulating, Urinating, Other (URTI symptoms) - Review of Systems General: Denies: Fever, Malaise HEENT: Reports: Dysphasia, Sinus Congestion, Sore Throat. Denies: Headaches Pulmonary: Denies: Shortness of Breath, Pleuritic Chest Pain Cardiovascular: Denies: Chest Pain, Palpitations, Dyspnea on Exertion Gastrointestinal: Denies: Abdominal Pain Genitourinary: Reports: Incontinence (with coughing). Denies: Dysuria Musculoskeletal: Reports: No Symptoms Skin: Reports: No Symptoms Neurological: Reports: No Symptoms - General Info Date of Service: 10/11/17 - Patient Data Vital Signs - Most Recent: Last Vital Signs Temp 36.1 C 10/11/17 08:54 Pulse 81 10/11/17 08:54 Resp 17 10/11/17 08:54 BP 136/87 10/11/17 08:54 Pulse Ox 96 10/11/17 08:54 Weight - Most Recent: 194 lb Micro Results - Last 24 Hours: Microbiology 10/08/17 17:00 Quick Strep Confirmation Culture - Final Throat NO GROUP A STREP ISOLATED Group A Streptococcus Rapid Screen - Final NEGATIVE STREP A SCREEN Med Orders - Current: Current Medications Acetaminophen (Tylenol Extra Strength) 500 mg PO Q4H PRN PRN Reason: Pain Acetaminophen (Tylenol Extra Strength) 1,000 mg PO Q4H PRN PRN Reason: Pain Last Admin: 10/10/17 18:08 Dose: 1,000 mg Benzocaine/Menthol (Cepacol Sore Throat) 1 lozenge MUCMEM Q2H PRN PRN Reason: Cough Last Admin: 10/10/17 17:07 Dose: 1 lozenge Benzocaine/Menthol (Dermoplast Pain Relief 20%-0.5% [place]) 78 gm TOP ASDIRECTED PRN PRN Reason: Perineal Comfort Measure Last Admin: 10/09/17 17:34 Dose: 1 applic Bisacodyl (Dulcolax) 10 mg RECTAL .ONCE PRN PRN Reason: Constipation Docusate Sodium (Colace) 100 mg PO BID PRN PRN Reason: Constipation Last Admin: 10/10/17 07:56 Dose: 100 mg Emollient Ointment (Lansinoh Hpa) 0 gm TOP ASDIRECTED PRN PRN Reason: Sore Nipples Last Admin: 10/09/17 17:35 Dose: 1 applic Ibuprofen (Motrin) 400 mg PO Q4H PRN PRN Reason: Pain Ibuprofen (Motrin) 800 mg PO Q6H PRN PRN Reason: Pain Methylergonovine Maleate (Methergine) 0.2 mg IM .ONCE PRN PRN Reason: Excessive Vaginal Bleeding Oxycodone HCl (Oxycodone) 5 mg PO Q2H PRN PRN Reason: Pain Witch Antonia (Tucks) 1 pad TOP ASDIRECTED PRN PRN Reason: comfort care Last Admin: 10/09/17 17:35 Dose: 1 applic Discontinued Medications Butorphanol Tartrate (Stadol) 1 mg IVPUSH Q1H PRN PRN Reason: Pain Carboprost Tromethamine (Hemabate Ds) 250 mcg IM ASDIRECTED PRN PRN Reason: Post Hemorrhage Hydroxyzine Pamoate (Vistaril) 50 mg PO BEDTIME PRN PRN Reason: Sleep Last Admin: 10/08/17 20:51 Dose: 50 mg Ampicillin Sodium 2 gm/ Sodium (Chloride) 100 mls @ 200 mls/hr IV ONETIME ONE Stop: 10/08/17 16:29 Last Admin: 10/08/17 16:11 Dose: 200 mls/hr Ampicillin Sodium 1 gm/ Sodium (Chloride) 50 mls @ 100 mls/hr IV Q4H [facility] Last Admin: 10/09/17 11:59 Dose: 100 mls/hr Lactated Ringer's (Ringers, Lactated) 1,000 mls @ 150 mls/hr IV ASDIRECTED [facility] Last Admin: 10/09/17 05:23 Dose: 150 mls/hr Oxytocin/Sodium Chloride (Oxytocin 30 Unit/500 Ml-Ns) 30 unit in 500 mls @ 999 mls/hr IV TITRATE [facility] Last Infusion: 10/09/17 05:47 Dose: 10 mls/hr Tranexamic Acid 1,000 mg/ (Sodium Chloride) 110 mls @ 660 mls/hr IV ONETIME PRN PRN Reason: Bleeding Fentanyl/Bupivacaine HCl (Cevkjyyk-Vzmkc-Sx 2 Mcg/Ml-0.125%) Confirm Administered Dose 100 mls @ as directed EP .STK-MED ONE Stop: 10/09/17 00:40 Oxytocin 20 unit/ Sodium (Chloride) 1,002 mls @ 6.01 mls/hr IV TITRATE JUANPABLO; 2 MUNITS/MIN PRN Reason: Protocol Fentanyl/Bupivacaine HCl (Yisgrpvp-Hhaso-Au 2 Mcg/Ml-0.125%) Confirm Administered Dose 100 mls @ as directed EP RigoSTK-MED ONE Stop: 10/09/17 10:02 Lidocaine HCl (Xylocaine 1%) 50 ml INJECT .ONCE PRN PRN Reason: Laceration repair Methylergonovine Maleate (Methergine) 0.2 mg IM ASDIRECTED PRN PRN Reason: Post Hemorrhage Misoprostol (Cytotec) 200 mcg PO .ONCE PRN PRN Reason: Post Hemorrhage Misoprostol (Cytotec) 25 mcg PO ONETIME ONE Stop: 10/08/17 17:16 Last Admin: 10/08/17 17:45 Dose: 25 mcg Misoprostol (Cytotec) 25 mcg VAG Q6H PRN PRN Reason: Cervical Ripening Last Admin: 10/09/17 01:07 Dose: 25 mcg Nalbuphine HCl (Nubain) 10 mg IVPUSH Q1H PRN PRN Reason: Pain (severe 7-10) Sodium Chloride (Saline Flush) 10 ml FLUSH ASDIRECTED PRN PRN Reason: Keep Vein Open Sodium Chloride (Saline Flush) 2.5 ml FLUSH ASDIRECTED PRN PRN Reason: Keep Vein Open Sterile Water (Sterile Water For Irrigation) 1,000 ml IRR ASDIRECTED PRN PRN Reason: delivery Last Admin: 10/09/17 16:21 Dose: 1,000 ml - Interaction Infant Disposition, : [place] in Room with Family Infant Feeding: Attempted ; Nursed Fair/Poor Support Person: - Recovery Exam Fundal Tone: Firm Fundal Level: 1 Fingerbreadths Below Umbilicus Fundal Placement: Midline Lochia Amount: Scant Lochia Color: Rubra/Red Perineum Description: Intact, Minimal Bruising/Swelling Episiotomy/Laceration: Approximated Bladder Status: Voiding Urinary Elimination: Voided - Exam General: Alert, Oriented HEENT: Pupils Equal Lungs: Clear to Auscultation, Normal Respiratory Effort Cardiovascular: Regular Rate GI/Abdominal Exam: Normal Bowel Sounds Extremities: Normal Inspection, Pedal Edema Wound/Incisions: Healing Well Psy/Mental Status: Alert, Normal Affect, Normal Mood - Problem List & Annotations (1) Vaginal delivery SNOMED Code(s): 466756586 Code(s): O80 - ENCOUNTER FOR FULL-TERM UNCOMPLICATED DELIVERY Status: Acute Current Visit: Yes - Problem List Review Problem List Initiated/Reviewed/Updated: Yes - Assessment Assessment:: PPD#2 after following induction for PPROM. Delivery at 37 weeks. Ok for discharge today. Awaiting fundraising consultant for more input on breast feeding - Plan Plan:: Discharge instructions reviewed Bleeding and infection precautions reviewed Stressed differences in blues and depression- patient understands that she needs to call if any concerns Preeclampsia precautions reviewed Follow up in 1 wk- BP check and then 6 weeks for routine pp visit
== END 2017-10-11 15:10 | disposition home or self-care (01) | DRG 775 ==
LOC: MW.OBCHECK 14:52 → MW.OB 14:59 → MW.OBCHECK 15:36 → MW.OB 15:36 → OBSVTOIN 10-09 12:59
PROVIDERS: ADMIT Obstetrics & Gynecology; ATTEND Obstetrics & Gynecology
PROC: 10E0XZZ Delivery of Products of Conception, External Approach (ICD-10-PCS; principal; 2017-10-09)
PROC: 3E0P7VZ Introduction of Hormone into Female Reproductive, Via Natural or Artificial Opening (ICD-10-PCS; 2017-10-09)
PROC: 3E033VJ Introduction of Other Hormone into Peripheral Vein, Percutaneous Approach (ICD-10-PCS; 2017-10-09)
PROC: 0HQ9XZZ Repair Perineum Skin, External Approach (ICD-10-PCS; 2017-10-09)
DX: O42.013 Preterm premature rupture of membranes, onset of labor within 24 hours of rupture, third trimester (principal); O70.0 First degree perineal laceration during delivery; Z3A.36 36 weeks gestation of pregnancy; Z37.0 Single live birth
CPT/HCPCS: 36415; 51702; 59025; 59409; 80053; 81001; 82803; 84550; 85014; 85018; 85027; 86850; 86900; 86901; 87081; 87804; 87880; A9270-GY; J0290; J2590; J7030; J7050; J7120